=== PATIENT | female | born 1955 | race Caucasian/White ===

== ENCOUNTER 2019-10-14 02:31 | Emergency (ER) | payer MEDICAID ==
[~2019-10-14] VITALS: Ht 162.6 cm; Wt 78.0 kg
[~2019-10-14 02:31] MED LIST: ARIP5TAB14 PO; ASPI-147; CLON-527 PO; HYDR1TAB PO; IBUP-1984 PO; P-EP-35 PO
[2019-10-14] MEDS ORDERED: PENI500T2 PO (02:40)
[2019-10-14 02:58] VITALS: BP 173/97
== END 2019-10-14 02:59 | disposition home or self-care (01) ==
LOC: ER 02:32
DX: H60.91 Unspecified otitis externa, right ear (principal); K02.9 Dental caries, unspecified; F15.90 Other stimulant use, unspecified, uncomplicated; Z90.710 Acquired absence of both cervix and uterus; Z86.19 Personal history of other infectious and parasitic diseases; Z79.899 Other long term (current) drug therapy
CPT/HCPCS: 99283

== ENCOUNTER 2019-10-22 08:35 | Emergency (ER) | payer MEDICAID ==
[~2019-10-22] VITALS: Ht 165.1 cm; Wt 81.8 kg
[2019-10-22 08:38] VITALS: BP 138/69
[2019-10-22] MEDS ORDERED: acetaminophen 325mg tablet PO ONE (09:05)
== END 2019-10-22 09:11 | disposition home or self-care (01) ==
LOC: ER 08:36
DX: H92.01 Otalgia, right ear (principal); K08.89 Other specified disorders of teeth and supporting structures; F15.90 Other stimulant use, unspecified, uncomplicated; Z90.710 Acquired absence of both cervix and uterus; Z86.19 Personal history of other infectious and parasitic diseases; Z79.899 Other long term (current) drug therapy
CPT/HCPCS: 99282

== ENCOUNTER 2020-03-04 19:32 | Emergency (ER) | payer MEDICARE, MEDICAID ==
[~2020-03-04] VITALS: Ht 162.6 cm; Wt 77.3 kg
[2020-03-04 19:34] VITALS: BP 147/83
--- NOTE | 2020-03-04 19:43 | NUR ---
Cervical lymph node to right side of neck firm to the touch and tender.
== END 2020-03-04 20:49 | disposition home or self-care (01) ==
LOC: ER 19:32
DX: R59.1 Generalized enlarged lymph nodes (principal); F15.90 Other stimulant use, unspecified, uncomplicated; Z90.710 Acquired absence of both cervix and uterus; Z86.19 Personal history of other infectious and parasitic diseases; Z79.899 Other long term (current) drug therapy
CPT/HCPCS: 99281

== ENCOUNTER 2020-10-31 19:15 | Emergency (ER) | payer MEDICARE, MEDICAID ==
[~2020-10-31] VITALS: Ht 162.6 cm; Wt 77.2 kg
[2020-10-31 20:41] VITALS: BP 151/83
--- NOTE | 2020-10-31 22:20 | NUR ---
PT SHOWED ME A PHOTO THAT SHE TOOK EARLIER. IT WAS A PICTURE OF HER LEFT EYE AND IT WAS BLURRY. SHE STATES THAT THERE IS SOMETHING IN HER EYE IN THE PHOTO AND THAT SHE IS NOT DELUSIONAL. I TOLD HER I WOULD MAKE A NOTE OF HER SHOWING ME THIS PHOTO. SHE AFFERMS THAT THERE IS SOMETHING GOING ON WITH HER AND SHE IS NOT DELUSIONAL.
== END 2020-10-31 22:24 | disposition home or self-care (01) ==
LOC: ER 19:16
DX: Z02.89 Encounter for other administrative examinations (principal); F15.90 Other stimulant use, unspecified, uncomplicated; F12.90 Cannabis use, unspecified, uncomplicated; Z86.19 Personal history of other infectious and parasitic diseases; Z90.710 Acquired absence of both cervix and uterus; Z79.899 Other long term (current) drug therapy
CPT/HCPCS: 99281

== ENCOUNTER 2021-12-27 17:24 | Emergency (ER) | payer MEDICARE, MEDICAID ==
[~2021-12-27] VITALS: Ht 162.6 cm; Wt 68.2 kg
[2021-12-27 18:02] VITALS: BP 131/75
[2021-12-27 19:18] LABS: BASOPHILS % (AUTO) 0.6 % (0-1); EOSINOPHILS # (AUTO) 0.1 X10'3 (0-0.9); EOSINOPHILS % (AUTO) 1.8 % (0-6); HEMATOCRIT 38.1 % (35.0-45.0); HEMOGLOBIN 12.7 g/dl (12.0-16.0); LYMPHOCYTES # (AUTO) 2.1 X10'3 (1.1-4.8); LYMPHOCYTES % (AUTO) 29.9 % (21-51); MEAN CORPUSCULAR HEMOGLOBIN 29.4 PG (27.0-31.0); MEAN CORPUSCULAR HGB CONC 33.4 g/dL (33.0-36.5); MEAN PLATELET VOLUME 8.4 FL (7.4-10.4); MONOCYTES # (AUTO) 0.5 X10'3 (0-0.9); MONOCYTES % (AUTO) 7.8 % (2-12); NEUTROPHILS # (AUTO) 4.1 X10'3 (1.8-7.7); NEUTROPHILS % (AUTO) 59.9 % (42-75); PLATELET COUNT 277 X10'3 (140-440); RED BLOOD COUNT 4.33 X10'6 (4.20-5.60); RED CELL DISTRIBUTION WIDTH 13.7 % (11.5-14.5); WHITE BLOOD COUNT 6.9 X10'3 (4.5-11.0)
[2021-12-27 19:19] LABS: CLARITY,URINE CLEAR (Clear); COLOR,URINE YELLOW (Yellow); GLUCOSE, URINE NEGATIVE (Neg); KETONES,URINE NEGATIVE (Neg); LEUKOCYTE ESTERASE ,URINE NEGATIVE (Neg); NITRITES, URINE NEGATIVE (Neg); OCCULT BLOOD,URINE NEGATIVE (Neg); PROTEIN,URINE NEGATIVE (Neg); UROBILINOGEN,URINE 0.2 E.U/dL (0.2-1.0)
[2021-12-27 19:21] LABS: UA COLLECTION TYPE CLN CATCH MIDSTREAM
[2021-12-27 19:33] LABS: URINE AMPHETAMINE SCREEN NEGATIVE (Neg); URINE BARBITUATE SCREEN NEGATIVE (Neg); URINE BENZODIAZEPINES SCREEN NEGATIVE (Neg); URINE CANNABINOID SCREEN NEGATIVE (Neg); URINE COCAINE SCREEN NEGATIVE (Neg); URINE METHADONE SCREEN NEGATIVE (Neg); URINE OPIATE SCREEN NEGATIVE (Neg); URINE PHENCYCLIDINE SCREEN NEGATIVE (Neg)
[2021-12-27 19:39] LABS: ALANINE AMINOTRANSFERASE 18 U/L (12-78); ALBUMIN 3.7 G/DL (3.4-5.0); ALKALINE PHOSPHATASE 126 IU/L (46-116); ANION GAP 6 (8-16); ASPARTATE AMINO TRANSFERASE 13 U/L (10-37); BILIRUBIN,TOTAL 0.7 MG/DL (0.1-1.0); BLOOD UREA NITROGEN 14 MG/DL (7-18); BUN/CREATININE RATIO 20.9 (6.6-38.0); CALCIUM 9.1 MG/DL (8.5-10.1); CHLORIDE 105 MMOL/L (99-107); CREATININE 0.67 MG/DL (0.40-0.90); GLUCOSE 72 MG/DL (70-104); POTASSIUM 3.6 MMOL/L (3.5-5.1); SODIUM 142 MMOL/L (135-145); TOTAL CARBON DIOXIDE 31.2 MMOL/L (24-32); TOTAL PROTEIN 7.4 G/DL (6.4-8.2); eGFR 88 ML/MIN
== END 2021-12-27 20:21 | disposition home or self-care (01) ==
LOC: ER 17:25
DX: R07.9 Chest pain, unspecified (principal); M79.10 Myalgia, unspecified site; F12.10 Cannabis abuse, uncomplicated; F15.10 Other stimulant abuse, uncomplicated; Z79.899 Other long term (current) drug therapy
CPT/HCPCS: 36415; 71045; 80053; 80305; 81003; 84484; 85025; 93005; 99285

== ENCOUNTER 2022-12-17 10:07 | Outpatient (CLI) | payer MEDICARE, MEDICAID | END 2022-12-17 23:59 | disposition home or self-care (01) | LOC: RAD 10:07 | PROVIDERS: ATTEND Family Medicine | DX: J34.89 Other specified disorders of nose and nasal sinuses (principal); R51.9 Headache, unspecified | CPT/HCPCS: 70486 ==